=== PATIENT | female | born 1990 | race American Indian/Alaskan Native ===

== ENCOUNTER 2020-05-29 19:48 | Inpatient (IN) | payer BC, MEDICAID ==
[2020-05-29] MEDS ORDERED: ePHEDrine SULFATE 50 MG/1 ML INJ IV PRN (20:38)
[2020-05-29] MEDS ORDERED: fentaNYL 100 MCG/2 ML INJ IV PRN (20:38)
[2020-05-29] MEDS ORDERED: TERBUTALINE 1 MG/1 ML INJ SUB-Q PRN (20:38)
[2020-05-29] MEDS ORDERED: LIDOCAINE (2%) 20 MG/1 ML VIAL 20 ML MDV INFILTRATI ONE (20:38)
[2020-05-29] MEDS ORDERED: MINERAL OIL 30 ML ORAL LIQD PO PRN (20:38)
--- NOTE | 2020-05-29 20:43 | History and Physical Report ---
History of Present Illness Date of examination: 05/29/20 Date of admission: 05/29/20 19:48 Chief complaint: Sent for IOL due to elevated blood pressure in office today. History of present illness: 30 year old presents for IOL due to elevated blood pressure in office today. recommended delivery. Patient received care at [facility] and records are available. LMP 09/10/2019. EDC 06/16/2020. significant for the following: gestational hypertension, obesity, depression (no meds, no thoughts of harm), anemia (supplemented with iron), HSV 2 positive, on Valtrex suppression. labs are as follows: B+, antibody screen negative. rubella immune, hepatitis B surface antigen negative, HIV negative, RPR nonreactive, varicella immune, HSV 2 serology positive, hemoglobin electrophoresis AA, gonorrhea negative, chlamydia negative, trichomonas negative, AFP tetra negative, 1 hour sugar test 95/129, GBS negative. Past History Past Medical History: other (obesity, depression) Past Surgical History: cholecystectomy NEGATIVE SPOTTER History: herpes (+ serology; pt. denies lesions or prodromal symptoms). denies: chlamydia, gonorrhea, hepatitis B, hepatitis C, HIV, syphilis, trichomonas Family/Genetic History: diabetes, hypertension Social history: lives with family, full code. denies: smoking, alcohol abuse, prescription drug abuse, IV drug use - Obstetrical History Expected Date of Delivery: 06/16/20 Actual Gestation: 37 Week(s) 3 Day(s) : 3 Para: 0 Hx # Term Pregnancies: 0 Number of Pregnancies: 0 Spontaneous Abortions: 1 Induced : 1 Number of Living Children: 0 Medications and Allergies Allergies Allergy/AdvReac Type Severity Reaction Status Date / Time No Known Allergies Allergy Unverified 05/21/20 18:14 Home Medications Medication Instructions Recorded Confirmed Last Taken Type No Known Home Medications [No 05/23/20 05/23/20 Unknown History Reported Home Medications] Active Meds: Active Medications Acetaminophen (Tylenol) 650 mg PO Q4H PRN PRN Reason: Pain, Mild (1-3) Ephedrine Sulfate (Ephedrine Sulfate) 10 mg IV Q2M PRN PRN Reason: Hypotension Fentanyl (Sublimaze) 100 mcg IV Q2H PRN PRN Reason: Pain,Severe (7-10) LABOR PAIN Oxytocin/Sodium Chloride (Pitocin/Ns 30 Unit/500ml) 30 units in 500 mls @ 2 mls/hr IV TITR KOREY; Protocol Lactated Ringer's (Lactated Ringers) 1,000 mls @ 125 mls/hr IV DIRECT KOREY Oxytocin/Sodium Chloride (Pitocin/Ns 20 Unit/1000ml Drip) 20 units in 1,000 mls @ 125 mls/hr IV DIRECT KOREY Lidocaine (Xylocaine 2%) 20 ml INFILTRATI ONCE ONE Stop: 05/29/20 20:39 Mineral Oil (Mineral Oil) 30 ml PO QHS PRN PRN Reason: Constipation Terbutaline Sulfate (Brethine) 0.25 mg SUB-Q ONCE PRN PRN Reason: Hyperstimulation/Hypertonicity Valacyclovir HCl (Valtrex) 500 mg PO BID KOREY Review of Systems All systems: negative (irregular mild contractions) - Vital Signs Vital signs: Vital Signs Pulse BP 85 144/84 05/29/20 20:26 05/29/20 20:26 Temp Pulse Resp BP Pulse Ox 85 144/84 05/29/20 20:26 05/29/20 20:26 - Physical Exam Abdomen: Positive: normal appearance, soft. Negative: distention, tenderness, guarding, rigidity Genitourinary (Female): Positive: normal external genitalia, normal perenium. Negative: perineal/vulvar lesions (no lesions seen on careful exam with bright light upon admission) Vagina: Positive: normal moisture Uterus: Positive: enlarged. Negative: tender Anus/Rectum: Positive: normal perianal skin Extremities: Positive: edema (mild pedal edema). Negative: tenderness - Obstetrical FHR: category 1 Cervical Dilatation: 0 Cervical Effacement Percentage: 20 station: -2 Uterine Contraction Pattern: Irregular Uterine Contraction Intensity: Mild Results All other labs normal. Assessment and Plan A: at 37 weeks, 3 days gestation. Gestational hypertension. GBS negative. HSV 2 positive serology, on Valtrex suppression. P: Admit. Continuous EFM. Continue Valtrex suppression of HSV. PIH labs. BP monitoring. Cervical ripening and IOL. Discussed with patient risks and benefits of Pitocin cervical ripening and IOL. Patient consented to cervical ripening and IOL.
[2020-05-29] MEDS ORDERED: OXYTOCIN 20 UNIT/1000ML DRIP 20 UNITS/1,000 ML BAG IV SCH (21:00)
--- NOTE | 2020-05-29 21:53 | Ultrasound Report ---
Examination: Ultrasound Obstetrical Limited, 05/29/2020 INDICATION: Limited study requested to evaluate presentation. COMPARISON: Obstetrical ultrasound, 05/22/2020 FINDINGS: The presentation is cephalic. The heart rate equals 144 bpm. IMPRESSION: Limited obstetrical ultrasound as above. Signer Name: Zhanna De La Cruz MD Signed: 05/29/2020 9:48 PM Workstation Name: [id number]
[2020-05-29 22:50] LABS: Basophils # (Auto) 0.1 K/mm3 (0.0-0.1); Basophils % (Auto) 0.6 % (0.0-1.8); Eosinophils # (Auto) 0.1 K/mm3 (0.0-0.4); Eosinophils % (Auto) 0.7 % (0.0-4.3); Hematocrit 31.6 % (30.3-42.9); Hemoglobin 10.4 gm/dl (10.1-14.3); Lymphocytes # (Auto) 2.2 K/mm3 (1.2-5.4); Lymphocytes % (Auto) 16.1 % (13.4-35.0); Mean Corpuscular HGB Conc 33 % (30-34); Mean Corpuscular Volume 77 fl (79-97); Monocytes # (Auto) 0.7 K/mm3 (0.0-0.8); Monocytes % (Auto) 5.1 % (0.0-7.3); Platelet Count 136 K/mm3 (140-440); Red Blood Count 4.09 M/mm3 (3.65-5.03); Red Cell Distribution Width 16.2 % (13.2-15.2)
[2020-05-29 23:06] LABS: Alanine Aminotransferase 13 units/L (7-56); Albumin 3.3 g/dL (3.9-5); Blood Urea Nitrogen 10 mg/dL (7-17); Calcium 8.7 mg/dL (8.4-10.2); Hemolysis Index 75
[2020-05-29] MEDS: valACYclovir 500 MG TAB PO SCH (23:09)
[2020-05-29] MEDS: LACTATED RINGERS 1,000 ML IV SCH (23:12)
[2020-05-29] MEDS: OXYTOCIN DRIP 30 UNITS/500 ML BAG IV SCH (23:12)
[2020-05-29 23:26] LABS: BUN/Creatinine Ratio 14
[2020-05-30] MEDS: valACYclovir 500 MG TAB PO SCH ×3 (08:56→21:22)
[2020-05-30] MEDS: OXYTOCIN DRIP 30 UNITS/500 ML BAG IV SCH (11:38)
--- NOTE | 2020-05-30 12:00 | Event Note ---
Date: 05/30/20 Having labor induced at 37 weeks, 4 days gestation due to gestational hypertension. Patient denies leaking of fluid or vaginal bleeding. She reports active movement. She denies headache, visual disturbance, nausea or vomiting, or abdominal pain. Plan to continue cervical ripening with low dose Pitocin today.
[2020-05-30] MEDS ORDERED: DINOPROSTONE 10 MG VAG SUPP VG ONE (19:20)
[2020-05-30] MEDS: LACTATED RINGERS 1,000 ML IV SCH (20:49)
[2020-05-31] MEDS: LACTATED RINGERS 1,000 ML IV SCH ×2 (04:09→16:44)
--- NOTE | 2020-05-31 09:09 | Progress Note ---
Assessment and Plan A: at 37 5/7 weeks gestation. Gestational hypertension. P: Continuous EFM. Cervical ripening (Cervidil). BP monitoring. Subjective - Subjective Date of service: 05/31/20 Principal diagnosis: at 37 5/7 weeks; gestational hypertension Interval history: Patient had mild contractions overnight; has been undergoing cervical ripening. She denies vaginal bleeding. She reports active movement. Denies headache. Patient reports: movement normal, no new complaints, no loss of fluid, no vaginal bleeding Objective - Vital Signs Vital Signs: Vital Signs - 12hr 05/30/20 05/30/20 05/30/20 21:12 21:17 21:22 Temperature Pulse Rate 75 80 93 H Respiratory Rate Blood Pressure Blood Pressure [Left] O2 Sat by Pulse 99 98 99 Oximetry 05/30/20 05/30/20 05/30/20 21:27 21:32 21:37 Temperature Pulse Rate 82 78 80 Respiratory Rate Blood Pressure Blood Pressure [Left] O2 Sat by Pulse 98 99 99 Oximetry 05/30/20 05/30/20 05/30/20 21:42 21:47 21:52 Temperature Pulse Rate 81 78 76 Respiratory Rate Blood Pressure Blood Pressure [Left] O2 Sat by Pulse 99 98 99 Oximetry 05/30/20 05/30/20 05/30/20 21:57 22:02 22:07 Temperature Pulse Rate 77 78 82 Respiratory Rate Blood Pressure Blood Pressure [Left] O2 Sat by Pulse 98 100 99 Oximetry 05/30/20 05/30/20 05/30/20 22:12 22:17 22:18 Temperature Pulse Rate 82 85 77 Respiratory Rate Blood Pressure Blood Pressure [Left] O2 Sat by Pulse 99 98 86 Oximetry 05/30/20 05/30/20 05/30/20 22:22 22:33 22:38 Temperature Pulse Rate 79 98 H 69 Respiratory Rate Blood Pressure Blood Pressure [Left] O2 Sat by Pulse 98 98 98 Oximetry 05/30/20 05/30/20 05/30/20 22:43 22:48 22:53 Temperature Pulse Rate 79 78 78 Respiratory Rate Blood Pressure Blood Pressure [Left] O2 Sat by Pulse 99 99 99 Oximetry 05/30/20 05/30/20 05/30/20 22:58 23:03 23:08 Temperature Pulse Rate 81 78 67 Respiratory Rate Blood Pressure Blood Pressure [Left] O2 Sat by Pulse 100 100 96 Oximetry 05/30/20 05/30/20 05/30/20 23:13 23:18 23:23 Temperature Pulse Rate 82 64 75 Respiratory Rate Blood Pressure Blood Pressure [Left] O2 Sat by Pulse 98 97 98 Oximetry 05/30/20 05/30/20 05/30/20 23:28 23:33 23:38 Temperature Pulse Rate 81 76 80 Respiratory Rate Blood Pressure Blood Pressure [Left] O2 Sat by Pulse 98 97 97 Oximetry 05/30/20 05/30/20 05/30/20 23:43 23:48 23:53 Temperature Pulse Rate 78 81 79 Respiratory Rate Blood Pressure Blood Pressure [Left] O2 Sat by Pulse 98 97 98 Oximetry 05/31/20 05/31/20 05/31/20 00:02 00:07 00:12 Temperature Pulse Rate 90 88 73 Respiratory Rate Blood Pressure Blood Pressure [Left] O2 Sat by Pulse 99 97 99 Oximetry 05/31/20 05/31/20 05/31/20 00:17 00:22 00:27 Temperature Pulse Rate 80 86 86 Respiratory Rate Blood Pressure Blood Pressure [Left] O2 Sat by Pulse 98 100 99 Oximetry 05/31/20 05/31/20 05/31/20 00:32 00:37 00:42 Temperature Pulse Rate 69 71 67 Respiratory Rate Blood Pressure Blood Pressure [Left] O2 Sat by Pulse 99 98 98 Oximetry 05/31/20 05/31/20 05/31/20 00:47 00:52 00:57 Temperature Pulse Rate 62 63 71 Respiratory Rate Blood Pressure Blood Pressure [Left] O2 Sat by Pulse 99 99 99 Oximetry 05/31/20 05/31/20 05/31/20 01:02 01:07 01:12 Temperature Pulse Rate 68 68 75 Respiratory Rate Blood Pressure Blood Pressure [Left] O2 Sat by Pulse 99 99 100 Oximetry 05/31/20 05/31/20 05/31/20 01:21 01:26 01:31 Temperature Pulse Rate 83 69 71 Respiratory Rate Blood Pressure Blood Pressure [Left] O2 Sat by Pulse 99 99 98 Oximetry 05/31/20 05/31/20 05/31/20 01:36 01:41 01:46 Temperature Pulse Rate 70 69 78 Respiratory Rate Blood Pressure 141/80 Blood Pressure [Left] O2 Sat by Pulse 99 99 100 Oximetry 05/31/20 05/31/20 05/31/20 01:51 01:56 02:01 Temperature Pulse Rate 72 70 69 Respiratory Rate Blood Pressure Blood Pressure [Left] O2 Sat by Pulse 99 99 99 Oximetry 05/31/20 05/31/20 05/31/20 02:06 02:11 02:23 Temperature Pulse Rate 76 81 79 Respiratory Rate Blood Pressure Blood Pressure [Left] O2 Sat by Pulse 99 99 99 Oximetry 05/31/20 05/31/20 05/31/20 02:28 02:33 02:38 Temperature Pulse Rate 73 66 73 Respiratory Rate Blood Pressure Blood Pressure [Left] O2 Sat by Pulse 98 99 99 Oximetry 05/31/20 05/31/20 05/31/20 02:43 02:48 02:53 Temperature Pulse Rate 71 69 82 Respiratory Rate Blood Pressure Blood Pressure [Left] O2 Sat by Pulse 98 99 99 Oximetry 05/31/20 05/31/20 05/31/20 02:58 03:03 03:08 Temperature Pulse Rate 73 73 71 Respiratory Rate Blood Pressure Blood Pressure [Left] O2 Sat by Pulse 99 99 99 Oximetry 05/31/20 05/31/20 05/31/20 03:13 03:18 03:23 Temperature Pulse Rate 66 71 67 Respiratory Rate Blood Pressure Blood Pressure [Left] O2 Sat by Pulse 98 99 99 Oximetry 05/31/20 05/31/20 05/31/20 03:28 03:33 03:38 Temperature Pulse Rate 70 73 71 Respiratory Rate Blood Pressure Blood Pressure [Left] O2 Sat by Pulse 100 99 98 Oximetry 05/31/20 05/31/20 05/31/20 03:43 03:48 03:53 Temperature Pulse Rate 68 66 81 Respiratory Rate Blood Pressure Blood Pressure [Left] O2 Sat by Pulse 98 99 99 Oximetry 05/31/20 05/31/20 05/31/20 04:02 04:07 04:12 Temperature Pulse Rate 70 66 71 Respiratory Rate Blood Pressure Blood Pressure [Left] O2 Sat by Pulse 100 99 96 Oximetry 05/31/20 05/31/20 05/31/20 04:17 04:22 04:27 Temperature Pulse Rate 68 73 78 Respiratory Rate Blood Pressure Blood Pressure [Left] O2 Sat by Pulse 97 98 98 Oximetry 05/31/20 05/31/20 05/31/20 04:32 04:37 04:42 Temperature Pulse Rate 82 75 68 Respiratory Rate Blood Pressure Blood Pressure [Left] O2 Sat by Pulse 98 98 98 Oximetry 05/31/20 05/31/20 05/31/20 04:47 04:52 04:57 Temperature Pulse Rate 72 73 68 Respiratory Rate Blood Pressure Blood Pressure [Left] O2 Sat by Pulse 99 97 98 Oximetry 05/31/20 05/31/20 05/31/20 05:02 05:07 05:12 Temperature Pulse Rate 68 66 66 Respiratory Rate Blood Pressure Blood Pressure [Left] O2 Sat by Pulse 98 98 98 Oximetry 05/31/20 05/31/20 05/31/20 05:17 05:22 05:27 Temperature Pulse Rate 65 63 63 Respiratory Rate Blood Pressure Blood Pressure [Left] O2 Sat by Pulse 98 98 97 Oximetry 05/31/20 05/31/20 05/31/20 05:32 05:37 05:42 Temperature Pulse Rate 67 59 L 71 Respiratory Rate Blood Pressure Blood Pressure [Left] O2 Sat by Pulse 97 98 99 Oximetry 05/31/20 05/31/20 05/31/20 05:47 05:55 06:00 Temperature Pulse Rate 66 93 H 67 Respiratory Rate Blood Pressure Blood Pressure [Left] O2 Sat by Pulse 97 100 98 Oximetry 05/31/20 05/31/20 05/31/20 06:05 06:10 06:15 Temperature Pulse Rate 75 67 67 Respiratory Rate Blood Pressure Blood Pressure [Left] O2 Sat by Pulse 99 99 98 Oximetry 05/31/20 05/31/20 05/31/20 06:20 06:25 06:30 Temperature Pulse Rate 70 67 91 H Respiratory Rate Blood Pressure Blood Pressure [Left] O2 Sat by Pulse 98 99 100 Oximetry 05/31/20 05/31/20 05/31/20 06:35 06:40 06:45 Temperature Pulse Rate 79 73 68 Respiratory Rate Blood Pressure Blood Pressure [Left] O2 Sat by Pulse 99 99 98 Oximetry 05/31/20 05/31/20 05/31/20 06:50 06:55 07:00 Temperature Pulse Rate 84 75 71 Respiratory Rate Blood Pressure Blood Pressure [Left] O2 Sat by Pulse 97 98 97 Oximetry 05/31/20 05/31/20 05/31/20 07:05 07:10 07:15 Temperature Pulse Rate 64 64 67 Respiratory Rate Blood Pressure Blood Pressure [Left] O2 Sat by Pulse 97 96 98 Oximetry 05/31/20 05/31/20 05/31/20 07:20 07:25 07:30 Temperature Pulse Rate 67 71 73 Respiratory Rate Blood Pressure Blood Pressure [Left] O2 Sat by Pulse 98 98 98 Oximetry 05/31/20 05/31/20 05/31/20 07:35 07:40 07:41 Temperature Pulse Rate 93 H 73 67 Respiratory Rate Blood Pressure Blood Pressure [Left] O2 Sat by Pulse 99 99 90 Oximetry 05/31/20 05/31/20 05/31/20 07:53 07:59 08:10 Temperature 98.2 F Pulse Rate 71 Respiratory 18 Rate Blood Pressure Blood Pressure 151/86 [Left] O2 Sat by Pulse 78 L 94 100 Oximetry 05/31/20 05/31/20 05/31/20 08:12 08:15 08:16 Temperature Pulse Rate 76 71 Respiratory Rate Blood Pressure 168/105 Blood Pressure [Left] O2 Sat by Pulse 80 L 98 Oximetry 05/31/20 05/31/20 05/31/20 08:20 08:21 08:25 Temperature Pulse Rate 68 63 69 Respiratory Rate Blood Pressure 151/86 Blood Pressure [Left] O2 Sat by Pulse 99 100 Oximetry 05/31/20 05/31/20 05/31/20 08:28 08:29 08:32 Temperature Pulse Rate 67 111 H 73 Respiratory Rate Blood Pressure 155/91 Blood Pressure [Left] O2 Sat by Pulse 88 77 L Oximetry 05/31/20 05/31/20 05/31/20 08:37 08:39 08:44 Temperature Pulse Rate 112 H 64 112 H Respiratory Rate Blood Pressure Blood Pressure [Left] O2 Sat by Pulse 86 87 90 Oximetry 05/31/20 05/31/20 05/31/20 08:49 08:50 08:54 Temperature Pulse Rate 71 73 Respiratory Rate Blood Pressure Blood Pressure [Left] O2 Sat by Pulse 88 89 90 Oximetry 05/31/20 05/31/20 08:55 09:00 Temperature Pulse Rate 74 Respiratory Rate Blood Pressure Blood Pressure [Left] O2 Sat by Pulse 87 89 Oximetry - Exam Abdomen: Present: normal appearance, soft. Absent: distention, tenderness, guarding, rigidity Uterus: Present: fundal height above umbilicus. Absent: tenderness FHR: category 1 Uterine Contraction Monitor Mode: External Cervical Dilatation: 0.5 Cervical Effacement Percentage: 60 (soft) station: -2 Uterine Contraction Pattern: Absent - Labs Labs: Abnormal Labs 05/29/20 05/29/20 22:33 22:33 WBC 13.6 H MCV 77 L MCH 25 L RDW 16.2 H Plt Count 136 L Seg Neutrophils % 77.5 H Seg Neutrophils # 10.5 H Sodium 135 L Alkaline Phosphatase 160 H Lactate Dehydrogenase 301 H Total Protein 5.8 L Albumin 3.3 L Laboratory Results - last 24 hr 05/30/20 11:34 Coronavirus (PCR) Negative
[2020-05-31] MEDS ORDERED: DINOPROSTONE 10 MG VAG SUPP VG ONE (10:00)
[2020-05-31] MEDS: valACYclovir 500 MG TAB PO SCH ×2 (10:30→21:09)
--- NOTE | 2020-05-31 16:21 | Event Note ---
Date: 05/31/20 BPs are increasing. Patient denies headache, visual disturbance, nausea or abdominal pain. Magnesium sulfate ordered; Labetalol ordered. Dr. Locke notified.
[2020-05-31] MEDS ORDERED: MAGNESIUM SULFATE 4 GM/100 ML BAG IV ONE ×2 (16:30→20:41)
[2020-05-31 16:51] LABS: Basophils % (Auto) 0.3 % (0.0-1.8); Eosinophils % (Auto) 0.4 % (0.0-4.3); Hematocrit 33.8 % (30.3-42.9); Hemoglobin 10.8 gm/dl (10.1-14.3); Lymphocytes # (Auto) 1.6 K/mm3 (1.2-5.4); Lymphocytes % (Auto) 14.2 % (13.4-35.0); Mean Corpuscular HGB Conc 32 % (30-34); Mean Corpuscular Volume 78 fl (79-97); Monocytes # (Auto) 0.6 K/mm3 (0.0-0.8); Monocytes % (Auto) 5.8 % (0.0-7.3); Platelet Count 124 K/mm3 (140-440); Red Blood Count 4.32 M/mm3 (3.65-5.03); Red Cell Distribution Width 15.9 % (13.2-15.2)
[2020-05-31] MEDS ORDERED: BICITRA ORAL LIQD 30ML PO SCH (16:56)
[2020-05-31] MEDS ORDERED: FAMOTIDINE 20 MG/2 ML INJ IV SCH (16:56)
[2020-05-31] MEDS ORDERED: METOCLOPRAMIDE 10 MG/2 ML INJ IV SCH (16:56)
[2020-05-31] MEDS ORDERED: ceFAZolin/Water 2 GM/20 ML 2 GM/20 ML SYRINGE IV NR (17:00)
[2020-05-31] MEDS ORDERED: OXYTOCIN 20 UNIT/1000ML DRIP 20 UNITS/1,000 ML BAG IV SCH ×2 (17:00→19:00)
[2020-05-31] MEDS ORDERED: MAGNESIUM SULFATE 40GM/1000ML 40 GM/1,000 ML BAG IV SCH ×2 (17:00→19:00)
[2020-05-31] MEDS ORDERED: DEXMEDETOMIDINE 200 MCG/2 ML VIAL IV ONE (17:09)
[2020-05-31] MEDS ORDERED: ONDANSETRON 4 MG/2 ML INJ ONE (17:09)
[2020-05-31] MEDS ORDERED: KETOROLAC 30 MG/1 ML INJ ONE (17:09)
[2020-05-31] MEDS ORDERED: BUPIVACAINE /DEX-WATER 0.75% (2 ML) AMPULE INFILTRATI ONE (17:09)
[2020-05-31] MEDS ORDERED: OXYTOCIN 10 UNIT/1 ML INJ ONE (17:10)
[2020-05-31 17:12] LABS: Alanine Aminotransferase 12 units/L (7-56); Albumin 3.1 g/dL (3.9-5); Blood Urea Nitrogen 6 mg/dL (7-17); Hemolysis Index 1; Uric Acid 5.6 mg/dL (3.5-7.6)
[2020-05-31 17:16] LABS: BUN/Creatinine Ratio 9
[2020-05-31] MEDS ORDERED: BUPIVACAINE/PF (0.5%) 5 MG/1 ML 30 ML VIAL INFILTRATI ONE (17:16)
[2020-05-31] MEDS ORDERED: ePHEDrine SULFATE 50 MG/1 ML INJ ONE (17:19)
[2020-05-31] MEDS ORDERED: HYDROmorphone 1 MG/1 ML INJ IV PRN (17:22)
[2020-05-31] MEDS ORDERED: diphenhydrAMINE 50 MG/ML VIAL IV PRN (17:22)
[2020-05-31] MEDS ORDERED: NALOXONE 0.4 MG/1 ML INJ IV PRN ×2 (17:22→18:54)
[2020-05-31] MEDS ORDERED: NalbUPHINE 10 MG/1 ML INJ IV PRN (17:22)
[2020-05-31] MEDS ORDERED: PROMETHAZINE 25 MG TAB PO PRN (17:22)
[2020-05-31] MEDS ORDERED: PROMETHAZINE 25 MG RECT SUPP PR PRN (17:22)
[2020-05-31] MEDS ORDERED: ONDANSETRON 4 MG/2 ML INJ IV PRN ×2 (17:22→18:57)
--- NOTE | 2020-05-31 17:23 | Anesthesia Consultation ---
Anesthesia Consult and Med Hx Date of service: 05/31/20 - Airway Anesthetic Teeth Evaluation: Good ROM Head & Neck: Adequate Mental/Hyoid Distance: Adequate Mallampati Class: Class III Intubation Access Assessment: Possibly Difficult - Pulmonary Exam CTA: Yes - Cardiac Exam Cardiac Exam: RRR - Pre-Operative Health Status ASA Pre-Surgery Classification: ASA2, Emergency Proposed Anesthetic Plan: Spinal Nerve Block: TAP - Pulmonary Hx Smoking: No Hx Asthma: No COPD: No Hx Pneumonia: No Hx Sleep Apnea: No - Cardiovascular System Hx Hypertension: No - Central Nervous System Hx Seizures: No Hx Psychiatric Problems: No - Gastrointestinal Hx Gastroesophageal Reflux Disease: No - Endocrine Hx Renal Disease: No Hx End Stage Renal Disease: No Hx Hypothyroidism: No Hx Hyperthyroidism: No - Hematic Hx Anemia: No Hx Sickle Cell Disease: No - Other Systems Hx Alcohol Use: No
--- NOTE | 2020-05-31 17:23 | Event Note ---
Date: 05/31/20 Patient is a 30-year-old -0-2-0 at 37 weeks and 5 days. Patient was brought in for induction of labor 2 days ago due to elevated blood pressures. Despite 2 days of labor induction, patient has only dilated up to a fingertip in dilation. Case was discussed with the patient and the patient refused to continue the induction of labor. In addition her blood pressures are increasing and we are remote from delivery. As a result patient, agrees to proceed with a primary low transverse for failed induction. Patient fully consented for the surgery. Risks, benefits, and alternatives were all discussed with the patient including risk of bleeding, infection, and potential for injury. Patient understands and accepts these risks. Patient agrees to proceed with surgery. All questions were answered.
--- NOTE | 2020-05-31 17:24 | Anesthesia Day of Surgery ---
Anesthesia Day of Surgery - Day of Surgery Patient Examined: Yes Patient H&P Reviewed: Yes Patient is NPO: Yes (0900) Beta Blockers: No Cardiac Clearance: No Pulmonary Clearance: No Silas's Test: N/A
[2020-05-31] MEDS ORDERED: hydrALAZINE 20 MG/1 ML INJ IV PRN (17:26)
[2020-05-31] MEDS ORDERED: SODIUM CHLORIDE 0.9% IRR 1,500 ML BOTTLE IR ONE (17:30)
[2020-05-31] MEDS ORDERED: WATER FOR IRRIG STERILE 1,500 ML BOTTLE IR ONE (17:35)
[2020-05-31] MEDS ORDERED: KETAMINE/STERILE WATER 50 MG/ML SYRINGE ONE (17:42)
--- NOTE | 2020-05-31 17:50 | Progress Note ---
Spinal Anesthesia Block - Spinal Anesthesia Block Start Time: 17:30 Stop Time: 17:40 Performed by:: CLOTILDE MICHAEL (Flower ALLEN) Procedure: Spinal anesthesia block is being performed for [C/S]. H&P, labs have been reviewed. Patient's questions and concerns have been answered. Informed consent has been performed. Timeout has was performed. Patient in sitting position on side of bed. Sterile prep and drape was performed. 3 mL 1% lidocaine skin wheal at L [3]-L [4]. Needle introducer advanced. 25-gauge spinal needle advanced, [+] CSF [-] blood. [Marcaine 12mg and Precedex 10mcg] Spinal dose was given. All needles removed. Patient tolerated procedure well.
[2020-05-31 17:58] LABS: Bacteria,Urine 1+ /HPF (Negative); Bilirubin,Urine NEG (Negative); Blood,Urine NEG (Negative); Color,Urine Yellow (Yellow); Mucus,Urine FEW /HPF; Protein,Urine <15 mg/dL mg/dL (Negative); Urobilinogen,Urine < 2.0 mg/dL (<2.0)
[2020-05-31] MEDS ORDERED: LACTATED RINGERS 1,000 ML IV SCH (18:00)
[2020-05-31] MEDS ORDERED: WITCH HAZEL/ GLYCERIN PAD TP PRN (18:54)
[2020-05-31] MEDS ORDERED: LANOLIN/ZINC/DIMETHICONE (LANSINOH) 7 GM TP PRN (18:54)
[2020-05-31] MEDS ORDERED: oxyCODONE /ACETAMINOPHEN 5-325MG TAB PO PRN (18:54)
--- NOTE | 2020-05-31 18:54 | Procedure Note ---
OB Delivery Note - Delivery Date of Delivery: 05/31/20 Surgeon: REUBEN PARDO Estimated blood loss: other (800cc) - Section Preop diagnosis: arrest of dilation, other (failed IOL, pt declined to cont IOL) Postop diagnosis: same section procedure: section, primary low transverse Disposition: PACU Complications: none Narrative: Indication:30 yo with failed IOL and elevated BPs Findings: Normal uterus, tubes and ovaries. Clear fluid. Loose nuchal cord x 1. Procedure: Patient taken to the operating room and prepped and draped in the usual fashion. Pfannenstiel skin incision was made and carried down to the underlying fascia. Fascia was incised and the incision was extended bilaterally. Rectus fascia dissected off the rectus muscle both superiorly and inferiorly. Peritoneum identified tented up and entered. Peritoneal incision extended superiorly and inferiorly with good visualization of the bladder. Bladder blade was placed. Uterine incision was made and the incision was extended bilaterally. The baby was delivered from in the typical vertex fashion. Nuchal cord reduced. Baby bulb suctioned at the incision site and again after delivery. Cord was delayed clamped and cut and handed off to waiting team. The placenta was delivered spontaneously. The uterus was exteriorized and cleared of all clots and debris. Uterine incision closed with 0 Vicryl in a running locked fashion followed by a second imbricating layer of 0 Vicryl. Good hemostasis was noted. Her urine was clear. Uterus tubes and ovaries were returned to the abdominal cavity. Gutters were cleared of all clots and debris and the pelvis was well irrigated. Good hemostasis noted. Interceed placed over the uterine incision and over the lower uterine segment in the midline. Attention was turned to the rectus fascia which was reapproximated with 0 Vicryl in a running fashion. Subcutaneous tissue was irrigated and reapproximated with 2-0 Vicryl in a running fashion. Skin was closed with 4-0 Vicryl in a subcuticular fashion followed by Dermabond. The procedure was concluded at this point and the patient tolerated the procedure well. All instrument and lap counts were correct. - Infant A at 1 minute: 8 at 5 minutes: 9 Infant Gender: Female
[2020-05-31] MEDS ORDERED: MAGNESIUM HYDROXIDE (MOM) ORAL LIQD UDC PO PRN (18:57)
[2020-05-31] MEDS ORDERED: SENNOSIDES 8.6 MG TAB PO PRN (18:57)
[2020-05-31] MEDS ORDERED: SIMETHICONE 80 MG CHEW TAB PO PRN (18:57)
--- NOTE | 2020-05-31 20:04 | Progress Note ---
Regional Anesthesia Block - Regional Anesthesia Block Start Time: 19:00 Stop Time: 19:10 Performed By:: CLOTILDE MICHAEL ([facility]lower ALLEN) Procedure: Patient consented for TAP block for post surgical pain management. Patient identified, monitors placed, and time out performed. Mid axillary TAP identified bilaterally via ultrasound. Skin prepped bilaterally with [chlorhexidine] and [20g stimuplex] needle advanced to the TAP. 30ml [Marcaine 0.25% with 25mcg Precedex and Decadron 4mg] injected under ultrasound guidance on the [left] side. 30ml [Marcaine 0.25% with 25mcg Precedex and Decadron 4mg] injected under ultrasound guidance on the [right] side.
[2020-06-01] MEDS: KETOROLAC 30 MG/1 ML INJ IV PRN ×2 (02:37→13:18)
[2020-06-01] MEDS: LACTATED RINGERS 1,000 ML IV SCH (07:33)
[2020-06-01 08:33] LABS: Hematocrit 34.7 % (30.3-42.9); Hemoglobin 11.1 gm/dl (10.1-14.3)
[2020-06-01] MEDS: ACETAMINOPHEN 325 MG TAB PO PRN ×2 (09:02→12:51)
[2020-06-01] MEDS: valACYclovir 500 MG TAB PO SCH ×2 (09:40→22:11)
[2020-06-01] MEDS ORDERED: BUTORPHANOL 2 MG/1 ML INJ IV PRN (13:02)
--- NOTE | 2020-06-01 14:20 | Post Anesthesia Evaluation ---
- Post Anesthesia Evaluation Patient Participated: Yes Airway Patent: Yes Stable Respiratory Function: Yes Nausea/Vomiting: No Temp > 96.8F: Yes Pain Manageable: Yes Adequeate Hydration: Yes Anesthesia Complications: No Block Receding Appropriately: Yes Patient on Ventilator: No
--- NOTE | 2020-06-01 14:32 | Progress Note ---
Assessment and Plan POD#1 SP c/section preeclampsia MOnitor closely continue Postp care Dillan Hernandez MD Subjective - Subjective Date of service: 06/01/20 Principal diagnosis: at 37 5/7 weeks; gestational hypertension Interval history: SP c.section POD#1 BP's average <150/90 on MGSO4 for 24 hours PP Objective - Vital Signs Latest vital signs: Vital Signs Temp Pulse Resp BP BP Pulse Ox 06/01/20 14:26 77 98 06/01/20 14:22 75 141/92 06/01/20 14:21 77 99 06/01/20 14:20 95 H 43 L 06/01/20 14:16 82 97 06/01/20 14:11 81 98 06/01/20 14:10 94 H 93 06/01/20 14:06 85 98 06/01/20 14:01 85 99 06/01/20 13:56 86 99 06/01/20 13:51 91 H 99 06/01/20 13:50 85 145/71 06/01/20 13:46 90 99 06/01/20 13:41 97 H 98 06/01/20 13:36 97 H 99 06/01/20 13:31 92 H 97 06/01/20 13:26 87 98 06/01/20 13:21 88 100 06/01/20 13:20 80 157/82 06/01/20 13:16 79 99 06/01/20 13:11 78 98 06/01/20 13:06 86 99 06/01/20 13:01 94 H 98 06/01/20 12:59 83 93 06/01/20 12:56 91 H 100 06/01/20 12:51 84 100 06/01/20 12:48 78 146/88 06/01/20 12:46 86 99 06/01/20 12:41 79 99 06/01/20 12:36 84 99 06/01/20 12:31 74 98 06/01/20 12:26 78 98 06/01/20 12:21 76 98 06/01/20 12:16 75 100 06/01/20 12:11 80 98 06/01/20 12:06 84 97 06/01/20 12:01 71 97 06/01/20 11:56 71 97 06/01/20 11:52 72 94 06/01/20 11:51 74 95 1005/20 11:50 71 133/68 10/05/20 11:46 72 100 1005/20 11:41 73 97 1005/20 11:36 73 95 1005/20 11:31 75 95 1005/20 11:30 72 94 1005/20 11:27 97.9 F 19 1005/20 11:26 75 98 1005/20 11:21 79 97 1005/20 11:20 71 130/66 1005/20 11:16 76 98 1005/20 11:11 69 99 05/20 11:06 74 98 1005/20 11:01 77 99 05/20 10:56 73 98 05/20 10:51 74 98 05/20 10:50 74 138/73 1005/20 10:47 79 94 05/20 10:46 71 96 05/20 10:41 77 98 05/20 10:36 84 99 05/20 10:35 78 88 05/20 10:31 71 99 05/20 10:26 78 99 05/20 10:21 73 100 1005/20 10:20 73 143/88 1005/20 10:16 79 99 05/20 10:11 85 99 05/20 10:06 83 98 05/20 10:01 79 99 05/20 09:56 78 98 05/20 09:51 72 100 05/20 09:50 76 153/95 1005/20 09:46 72 98 05/20 09:41 91 H 99 05/20 09:40 78 149/82 1005/20 09:39 78 149/82 1005/20 09:36 77 99 1005/20 09:31 79 98 1005/20 09:26 79 98 1005/20 09:24 75 94 1005/20 09:21 79 97 1005/20 09:20 70 175/95 1005/20 09:16 90 99 1005/20 09:11 77 97 1005/20 09:06 79 98 1005/20 09:01 71 98 05/20 08:56 74 99 10/05/20 08:51 74 98 10/05/20 08:50 67 149/81 10/05/20 08:46 69 98 10/05/20 08:41 73 96 10/05/20 08:36 67 98 10/05/20 08:31 77 98 10/05/20 08:26 79 97 10/05/20 08:21 76 99 10/05/20 08:20 73 138/76 10/05/20 08:16 77 98 10/05/20 08:11 72 99 10/05/20 08:06 75 99 10/05/20 08:01 74 98 10/05/20 07:56 76 99 10/05/20 07:51 77 99 10/05/20 07:50 69 143/83 10/05/20 07:46 73 96 10/05/20 07:41 79 100 10/05/20 07:40 75 145/87 10/05/20 07:39 75 94 10/05/20 07:36 74 98 10/05/20 07:35 98.2 F 90 19 145/87 98 10/05/20 07:31 79 98 10/05/20 07:26 85 96 10/05/20 07:21 83 96 10/05/20 07:19 76 92 10/05/20 07:16 72 97 10/05/20 07:11 74 96 10/05/20 07:06 73 96 10/05/20 07:01 75 98 10/05/20 07:00 78 18 99 10/05/20 06:56 76 99 10/05/20 06:51 80 100 10/05/20 06:46 69 98 10/05/20 06:41 72 97 10/05/20 06:36 70 97 10/05/20 06:31 72 97 10/05/20 06:26 72 97 10/05/20 06:21 73 98 10/05/20 06:16 74 98 10/05/20 06:11 75 96 10/05/20 06:06 73 97 10/05/20 06:01 84 97 10/05/20 05:57 76 94 10/05/20 05:56 74 94 10/05/20 05:51 79 97 10/05/20 05:46 75 98 10/05/20 05:41 79 98 10/05/20 05:39 18 99 10/05/20 05:36 74 98 10/05/20 05:31 75 99 10/05/20 05:26 90 95 10/05/20 05:21 74 96 10/05/20 05:20 73 140/79 10/05/20 05:16 81 95 10/05/20 05:11 81 97 10/05/20 05:06 80 98 10/05/20 05:01 79 98 10/05/20 04:56 77 97 10/05/20 04:51 80 87 10/05/20 04:50 75 141/84 10/05/20 04:46 75 98 10/05/20 04:41 79 98 10/05/20 04:36 77 98 10/05/20 04:31 75 99 10/05/20 04:26 91 H 99 10/05/20 04:21 85 97 10/05/20 04:20 76 157/91 10/05/20 04:16 76 18 96 10/05/20 04:11 76 96 10/05/20 04:06 71 96 10/05/20 04:01 87 98 10/05/20 03:56 73 97 10/05/20 03:51 79 97 10/05/20 03:50 82 131/76 10/05/20 03:46 78 96 10/05/20 03:41 77 96 10/05/20 03:36 73 96 10/05/20 03:31 80 96 10/05/20 03:30 81 94 10/05/20 03:26 81 96 10/05/20 03:21 80 96 10/05/20 03:20 76 138/76 10/05/20 03:16 79 97 10/05/20 03:11 77 98 10/05/20 03:06 76 99 10/05/20 03:01 79 99 10/05/20 02:56 83 98 10/05/20 02:51 76 97 10/05/20 02:50 75 138/78 10/05/20 02:46 80 98 10/05/20 02:41 75 97 10/05/20 02:37 18 10/05/20 02:36 79 98 10/05/20 02:31 78 140/66 99 10/05/20 02:30 18 99 10/05 02:26 80 96 20 02:21 80 100 0520 02:16 80 98 05 02:11 80 98 06/01/20 02:09 18 06/01/20 02:06 80 99 06/01/20 02:01 83 98 06/01/20 01:56 80 97 06/01/20 01:51 94 H 99 06/01/20 01:50 82 168/99 94 05 01:46 78 96 06/01/20 01:41 98.3 F 81 18 97 05 01:39 18 06/01/20 01:36 76 98 05 01:31 77 98 06/01/20 01:26 81 98 06/01/20 01:21 77 98 06/01/20 01:20 70 142/73 06/01/20 01:16 78 98 06/01/20 01:11 79 98 06/01/20 01:06 76 98 06/01/20 01:01 79 97 06/01/20 00:56 76 98 06/01/20 00:51 74 98 05 00:50 71 142/90 06/01/20 00:46 81 97 05 00:41 73 98 05 00:36 70 95 06/01/20 00:31 72 99 06/01/20 00:26 75 97 06/01/20 00:21 74 98 06/01/20 00:20 69 139/86 05 00:16 75 98 05 00:15 18 98 06/01/20 00:11 76 98 06/01/20 00:06 75 99 05 00:01 77 98 05/31/20 23:56 76 98 05/31/20 23:51 74 98 05/31/20 23:50 75 136/84 05/31/20 23:46 81 99 05/31/20 23:41 77 97 05/31/20 23:36 79 98 05/31/20 23:31 74 98 05/31/20 23:26 75 97 05/31/20 23:21 69 96 05/31/20 23:20 84 136/83 05/31/20 23:16 73 97 05/31/20 23:11 74 96 05/31/20 23:06 74 98 05/31/20 23:01 72 99 05/31/20 22:56 76 99 05/31/20 22:51 90 98 05/31/20 22:49 75 123/74 05/31/20 22:48 74 130/75 05/31/20 22:46 76 99 05/31/20 22:41 69 98 05/31/20 22:36 75 97 05/31/20 22:31 85 99 05/31/20 22:30 16 99 05/31/20 22:26 82 99 05/31/20 22:21 74 98 05/31/20 22:16 74 98 05/31/20 22:11 75 99 05/31/20 22:06 77 98 05/31/20 22:01 79 99 05/31/20 21:56 75 98 05/31/20 21:51 76 98 05/31/20 21:46 78 99 05/31/20 21:41 76 98 05/31/20 21:36 77 98 05/31/20 21:31 82 98 05/31/20 21:26 84 100 05/31/20 21:21 76 100 05/31/20 21:16 78 100 05/31/20 21:10 73 139/78 100 05/31/20 21:05 80 99 05/31/20 21:01 77 135/75 05/31/20 21:00 58 L 100 05/31/20 20:58 58 L 85 05/31/20 20:55 75 100 05/31/20 20:50 67 100 05/31/20 20:45 81 100 05/31/20 20:40 75 98 05/31/20 20:39 70 82 L 05/31/20 20:35 72 100 05/31/20 20:34 80 0 L 05/31/20 20:30 97.8 F 78 18 134/91 10 L 05/31/20 19:52 67 25 H 136/62 99 05/31/20 19:37 63 17 133/75 99 05/31/20 19:22 61 21 130/53 100 05/31/20 19:07 61 21 130/53 100 05/31/20 19:02 65 21 122/51 100 05/31/20 18:57 97.6 F 70 28 H 130/53 100 05/31/20 17:22 83 156/98 05/31/20 17:21 85 172/112 05/31/20 16:52 81 188/110 05/31/20 16:51 81 100 05/31/20 16:46 88 100 05/31/20 16:41 78 100 05/31/20 16:37 74 139/81 05/31/20 16:36 77 99 05/31/20 16:31 81 100 05/31/20 16:28 94 H 70 L 05/31/20 16:26 85 100 05/31/20 16:21 85 152/88 100 05/31/20 16:16 86 100 05/31/20 16:11 77 100 05/31/20 16:06 78 99 05/31/20 16:05 73 156/96 05/31/20 16:01 77 100 05/31/20 15:59 79 167/106 05/31/20 15:56 78 100 05/31/20 15:51 84 98 05/31/20 15:46 82 98 05/31/20 15:41 89 93 05/31/20 15:35 75 156/101 05/31/20 15:34 85 99 05/31/20 15:29 81 99 05/31/20 15:24 75 99 05/31/20 15:19 83 100 05/31/20 15:14 82 100 05/31/20 15:09 79 99 05/31/20 15:05 78 135/74 05/31/20 15:04 75 100 05/31/20 14:59 73 98 05/31/20 14:54 80 100 05/31/20 14:49 74 100 05/31/20 14:44 72 100 05/31/20 14:40 87 87 05/31/20 14:39 96 H 100 05/31/20 14:35 82 134/77 05/31/20 14:33 79 99 Intake and Output 05/31/20 06/01/20 06/01/20 23:59 07:59 15:59 Intake Total 1700 1000 200 Output Total 775 3550 850 Balance 322 -[id number] -364 Intake: IV 1700 1000 Lactated Ringers 1,000 ml 1000 @ 125 mls/hr IV DIRECT KOREY Rx#:[id number] Oral 200 Output: Urine 775 3550 850 Indwelling Catheter 400 3550 850 Other: Total, Intake Amount 200 Total, Output Amount 400 1500 400 # Voids Indwelling Catheter 2 - Exam Breasts: Present: normal Cardiovascular: Present: Regular rate Lungs: Present: Clear to auscultation Abdomen: Present: normal appearance, other (incisionc/d/i) Uterus: Present: firm Incision: Present: normal, intact - Labs Labs: Abnormal lab results 05/31/20 05/31/20 06/01/20 Range/Units 16:31 16:31 00:37 WBC 11.2 H (4.5-11.0) K/mm3 MCV 78 L (79-97) fl MCH 25 L (28-32) pg RDW 15.9 H (13.2-15.2) % Plt Count 124 L (140-440) K/mm3 Seg Neutrophils % 79.3 H (40.0-70.0) % Seg Neutrophils # 8.8 H (1.8-7.7) K/mm3 Sodium 136 L (137-145) mmol/L BUN 6 L (7-17) mg/dL Magnesium 3.80 H (1.7-2.3) mg/dL Alkaline Phosphatase 169 H (35-129) units/L Total Protein 6.0 L (6.3-8.2) g/dL Albumin 3.1 L (3.9-5) g/dL 06/01/20 06/01/20 Range/Units 05:34 10:31 WBC (4.5-11.0) K/mm3 MCV (79-97) fl MCH (28-32) pg RDW (13.2-15.2) % Plt Count (140-440) K/mm3 Seg Neutrophils % (40.0-70.0) % Seg Neutrophils # (1.8-7.7) K/mm3 Sodium (137-145) mmol/L BUN (7-17) mg/dL Magnesium 4.40 H 5.10 H (1.7-2.3) mg/dL Alkaline Phosphatase (35-129) units/L Total Protein (6.3-8.2) g/dL Albumin (3.9-5) g/dL
[2020-06-01] MEDS: IBUPROFEN 800 MG TAB PO PRN (23:48)
[2020-06-02] MEDS: IBUPROFEN 800 MG TAB PO PRN (06:45)
--- NOTE | 2020-06-02 09:44 | Discharge Summary ---
Providers - Providers Date of Admission: 05/29/20 19:48 Date of discharge: 06/02/20 (1300) Attending physician: REUBEN PARDO Primary care physician: REUBEN PARDO Hospitalization Reason for admission: induction of labor Delivery: Procedure: primary low transverse Episiotomy: none Laceration: none Incision: dry, intact (glue intact, no drainage or bleeding noted) Other procedures: none complications: none Discharge diagnosis: IUP at term delivered baby: female Hospital course: See admission H & P; OB operative report and PP progress notes Condition at discharge: Stable Disposition: DC-01 TO HOME OR SELFCARE - Discharge Diagnoses (1) Status post primary low transverse section Status: Acute (2) History of depression Status: Acute Plan - Discharge Medications Prescriptions: Ibuprofen [Motrin 800 MG tab] 800 mg PO Q6H PRN #30 tablet PRN Reason: Pain, Mild (1-3) oxyCODONE /ACETAMINOPHEN [Percocet 5/325 mg] 1 tab PO Q6H PRN #30 tablet PRN Reason: Pain, Moderate (4-6) - Provider Discharge Summary Activity: routine, no sex for 6 weeks, no heavy lifting 4 weeks, no strenuous exercise Diet: other (Iron rich diet) Instructions: routine Additional instructions: [] Smoking cessation referral if applicable(refer to patient education folder for contact #) [] Refer to [facility] Booklet Call your doctor immediately for: * Fever > 100.5 * Heavy vaginal bleeding ( >1 pad per hour) * Severe persistent headache * Shortness of breath * Reddened, hot, painful area to leg or breast * Drainage or odor from incision. * Keep incision clean and dry at all times and follow doctor's instructions regarding bathing/showering * F/U at office in 1 week for B/P check - Follow up plan Follow up: REUBEN PARDO MD [Primary Care Provider] - 7 Days
[2020-06-02] MEDS: valACYclovir 500 MG TAB PO SCH (10:11)
[2020-06-02 15:52] VITALS: BP 148/89
== END 2020-06-02 16:00 | disposition home or self-care (01) | DRG 787 ==
LOC: LD 19:48 → OB 06-01 17:51
PROVIDERS: ADMIT Obstetrics & Gynecology; ATTEND Obstetrics & Gynecology
PROC: 10D00Z1 Extraction of Products of Conception, Low, Open Approach (ICD-10-PCS; principal; 2020-05-31)
DX: O13.4 Gestational [pregnancy-induced] hypertension without significant proteinuria, complicating childbirth (principal); O98.32 Other infections with a predominantly sexual mode of transmission complicating childbirth; O32.4XX0 Maternal care for high head at term, not applicable or unspecified; O99.214 Obesity complicating childbirth; O99.02 Anemia complicating childbirth; O99.344 Other mental disorders complicating childbirth; A60.09 Herpesviral infection of other urogenital tract; O14.94 Unspecified pre-eclampsia, complicating childbirth; Z3A.37 37 weeks gestation of pregnancy; Z37.0 Single live birth; Z20.828 Contact with and (suspected) exposure to other viral communicable diseases; Z90.49 Acquired absence of other specified parts of digestive tract; F32.9 Major depressive disorder, single episode, unspecified
CPT/HCPCS: 36415; 59200; 76815; 80053; 81001; 83615; 83735; 84550; 85014; 85018; 85025; 86850; 86900; 86901; G0378; C1765; J1170; J1885; J2405; J2590; J2765; J3010; J3475; J3490; J7120; U0003-CS